=== PATIENT | female | born 1960 | race Caucasian/White ===

== ENCOUNTER → 2017-02-24 | Outpatient (CLI) | payer OTHER ==
[~2017-02-24] MED LIST: AMOXIL500 MG PO; NAPROSYN 500MG500 MG PO; NOMEDS
[2017-02-24 13:52] LABS: BUN 12 mg/dL (7-18); GFR (ESTIMATED) 74 ML/MIN (59-)
== END ==
LOC: LAB 10:47
PROVIDERS: Nurse Practitioner Family
DX: I10 Essential (primary) hypertension (principal)